=== PATIENT | male | born 1980 | race Two or more races ===

== ENCOUNTER 2022-06-29 08:43 | Emergency (ER) | payer MEDICAID, SELFPAY ==
[2022-06-29 09:28] VITALS: BP 136/79; PULSE 78; RESP 16; TEMP 36.4; O2SAT 98; BMI 29.3
[2022-06-29 10:07] LABS: COVID-19 Test Negative (Negative); IDNOW Serial# 9DB6401D
[2022-06-29 10:10] LABS: IDNOW Serial# BCCEAD1C; Influenza A Negative (Negative); Influenza B2 Negative (Negative)
--- NOTE | 2022-06-29 10:58 | ED_ITS ---
HPI - URI/Sore Throat General Chief Complaint: Upper Respiratory Symptoms Stated Complaint: Flu Like Symptoms Time Seen by Provider: 06/29/22 09:43 Source: patient and family (Daughter at bedside with similar symptoms) Mode of arrival: ambulatory Limitations: language barrier (Spanish [place]) History of Present Illness HPI Narrative: 41yoM c No Sig PMHx presenting to the ER with daughter at bedside they both speak [place] with complaints of subjective fevers, chills, fatigue, malaise, nasal congestion/rhinorrhea, body aches and an intermittent productive cough for the past 2-3 days. He denies any measured fevers, dizziness, headaches, neck pain/stiffness, trouble swallowing or breathing, sore throat, ear pain, chest pain or shortness of breath, dyspnea on exertion, orthopnea, palpitations, paresthesias, nausea/vomiting/diarrhea constipation, abdominal pain, flank pain, dysuria, hematuria, abnormal penile discharge, rashes or recent travel or any other sick contacts that he is aware of other than his daughter any other symptoms complaints or concerns at this time. MD elicited complaint: cough, rhinorrhea and nasal congestion Onset (ago): day(s) (2-3) Consistency: constant Severity: mild Description of mucous: clear, watery and yellow Able to tolerate fluids by mouth: Yes Exacerbating factors: nothing Relieving factors: nothing Context: sick contacts and other(s) with similar symptoms Associated symptoms: chills, myalgias, headache, rhinorrhea, nasal congestion and cough Treatments prior to arrival: none Related Data Previous Rx's Medication Instructions Recorded acetaminophen 500 mg tablet 1,000 mg PO QID PRN fever or pain 06/29/22 (Tylenol Extra Strength) #14 tabs ibuprofen 800 mg tablet 800 mg PO Q8H PRN pain #14 tabs 06/29/22 Allergies Allergy/AdvReac Type Severity Reaction Status Date / Time No Known Allergies Allergy Verified 06/29/22 09:27 Review of Systems Review of Systems: Constitutional : No Weight loss, No Fever, No Chills, No Night Sweats, + Fatigue, + Malaise ENT/Mouth : No Hearing loss, No Ear Pain, + Nasal Congestion, No Sinus Pain, No Hoarseness, No sore throat, + Rhinorrhea, No Swallowing Difficulty Eyes: No Eye Pain, No Swelling, No Redness, No Foreign Body, No Discharge, No Vision Changes Cardiovascular : No Chest Pain, No SOB, No Dyspnea on Exertion, No Orthopnea, No Edema, No Palpitations Respiratory : + Cough, No Sputum, No Wheezing, No Smoke Exposure, No Dyspnea Gastrointestinal : No Nausea, No Vomiting, No Diarrhea, No Constipation, No abdominal Pain, No Hematochezia, No Melena Genitourinary : no irregular bleeding, No Dysuria, No Urinary Frequency, No Hematuria, No Urinary Incontinence, No Urgency, No Flank Pain, No Urinary Flow Changes, No Hesitancy Musculoskeletal : No joint pain, + Myalgias, No Joint Swelling Skin : No Skin Lesions, No rash Neuro : No Weakness, No Numbness, No Paresthesias, No Loss of Consciousness, No Dizziness, No Headache Psych : No Anxiety/Panic, No Depression, No SI/HI/AH/VH, No Social Issues, Heme/Lymph: No Bruising, No Bleeding,No Lymphadenopathy Endocrine : No Polyuria, No Polydipsia, No Temperature Intolerance Yes all other systems are reviewed and are negative [facility] Past Medical History Attestation statement: The following information was validated with the patient. Source: old records reviewed, obtained from family and nursing notes reviewed Social History Social History Advance Directives: No Physical Exam Vital Signs: Vital Signs: Last Vital Signs Temp 97.5 F 06/29/22 09:28 Pulse 78 06/29/22 09:28 Resp 16 06/29/22 09:28 BP 136/79 06/29/22 09:28 Pulse Ox 98 06/29/22 09:28 O2 Del Method 06/29/22 09:28 BMI result Body Mass Index 29.3 vital signs have been reviewed as normal and appeared to be correct. Blood pressure normal. Heart rate normal. Respiration rate normal. Temperature normal. Oxygen saturation normal. Appearance: Alert. Oriented X3. No acute distress. Head: Normal external exam. Normocephalic. Atraumatic. Eyes: PERRLA. EOMI. Conjunctiva and sclera normal. Eyelids normal. ENT: EAC normal. TM's Normal. Pharynx normal. Uvula midline. Moist mucous membranes. No lesions/ulcerations or masses noted on the tongue. Normal voice. No trismus noted. No drooling noted. No muffled voice noted. Neck: Normal inspection. Neck supple. FROM. No adenopathy. Thyroid Normal. No crepitus is noted. No meningeal signs. No neck mass noted. CVS: Normal heart rate and rhythm. Heart sound normal. Pulses normal throughout. No murmurs/rales/gallops. Respiratory: No respiratory distress. Painless inspiration. Breath sounds normal. No wheezes/rales/rhonchi noted. Chest nontender. No accessory muscle usage noted or decreased air movement noted. Back: Full range of motion noted. Skin: Skin warm and dry. Normal skin color. Normal skin turgor. No rashes/lesions/lacerations noted. Extremities: Extremities exhibit normal range of motion and nontender. Neuro: Oriented X 3. No motor deficit. No sensory deficit. Reflexes normal. Normal steady gait. No focal neuro deficits noted. CN's II-XII intact bilaterally? Vascular: + radial pulses/+ 2 distal pedal pulses/+2 dorsalis pedis b/l. Normal cap refill. No cyanosis noted to upper extremity nails and lower extremity toes nails. Course Course Course Narrative: 14-year-old female with no significant past medical history who is up-to-date on all immunizations currently in school presenting to the ER with her father at bedside they both speak [place] with complaints of subjective fevers, chills, fatigue, malaise, nasal congestion/rhinorrhea, ear pain, sore throat, intermittent headaches and a productive cough with yellow/green thick sputum for the past 2 weeks. Reports that he does not have a thermometer at home therefore he was unable to take his daughter's temperature although last night she felt very warm. He reports he has been giving [id number] Motrin Tylenol which has been providing symptomatic relief. On exam patient appears well. Vital signs are stable. Neck is soft nontender and full range of motion normal meningeal sign noted. Lungs clear to auscultation. Patient negative for COVID. Patient negative for influenza. Although daughter just tested positive for influenza. I explained to the patient most likely has influenza and has a false negative. Will DC home with instructions to self isolate and to return if any new or worsening symptoms to follow up with primary care provider. Patient with daughter at bedside understand agree this plan. MDM - URI/Sore Throat Medical Records Attestation: I reviewed the patient's medical records. Lab Data Attestation: I reviewed the patient's lab results. Labs: Lab Results 06/29/22 06/29/22 Range/Units 09:31 09:31 COVID-19 (ANAIS) Negative (Negative) COVID-19 Clin Com See Note Influenza Type A (ERROL) Negative (Negative) Influenza Type B (ERROL) Negative (Negative) Influenza A & B Note See Note Discharge Plan Discharge Clinical Impression: Viral infection Patient Disposition: Home, Self-Care Instructions: Viral Syndrome (ED) Prescriptions: New ibuprofen 800 mg tablet 800 mg PO Q8H PRN (Reason: pain) Qty: 14 0RF acetaminophen [Tylenol Extra Strength] 500 mg tablet 1,000 mg PO QID PRN (Reason: fever or pain) Qty: 14 0RF Referrals: Physician,None [Primary Care Provider] - (your pcp as needed) Stand Alone Forms: Work/School Release Print Language: Telugu
== END 2022-06-29 11:30 | disposition home or self-care (01) ==
PROVIDERS: Emergency Provider Emergency Medicine
DX: R51.9 Headache, unspecified (principal); R05.9 Cough, unspecified; M79.10 Myalgia, unspecified site; Z20.822 Contact with and (suspected) exposure to COVID-19
CPT/HCPCS: 87502; 87635; 99283

== ENCOUNTER 2022-09-14 06:51 | Emergency (ER) | payer MEDICAID, SELFPAY ==
[2022-09-14 07:13] VITALS: BP 141/93; PULSE 87; RESP 16; TEMP 37.4; O2SAT 97; BMI 26.4
--- NOTE | 2022-09-14 07:27 | ED.GENADULT ---
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 Mode of arrival: ambulatory Limitations: no limitations History of Present Illness HPI narrative: vaccinated for COVID + test at home here for work note symptoms tuesday test positive tuesday complaint: work note, rash Onset (ago): day(s) (tuesday) Location: neck Radiation: non-radiation Severity: mild Quality: other (pruritic) Pain Consistency: intermittent Relieving factors: none Exacerbating factors: movement Associated symptoms: other (loss of taste and smell) Treatments prior to arrival: none Related Data Previous Rx's Medication Instructions Recorded acetaminophen 500 mg tablet 1,000 mg PO QID PRN fever or pain 06/29/22 (Tylenol Extra Strength) #14 tabs ibuprofen 800 mg tablet 800 mg PO Q8H PRN pain #14 tabs 06/29/22 hydrocortisone 1 % topical cream 1 appl topical TID PRN rash 10 09/14/22 days #28.35 grams Allergies Allergy/AdvReac Type Severity Reaction Status Date / Time No Known Allergies Allergy Verified 06/29/22 09:27 Review of Systems Review of Systems: Constitutional : No Fever, No Chills, loss of taste and smell ENT/Mouth : No sore throat, No Rhinorrhea Cardiovascular : No Chest Pain, No SOB Respiratory : No Cough, No Sputum Gastrointestinal : No Nausea, No Vomiting, No Diarrhea, No abdominal Pain Musculoskeletal : No joint pain, No Myalgias, No Joint Swelling Skin : No Skin Lesions, positive skin rash Neuro : No Weakness, No Numbness, No Headache Psych : No Anxiety, No Depression All other systems reviewed and are negative [facility] Past Medical History Attestation statement: The following information was validated with the patient. Medical History No pertinent past medical history Social History Social History (Updated 09/14/22 @ 07:28 by Lisa Fonseca DO) Patient Tobacco Use Status: Tobacco use Unknown Advance Directives: No Advance Directives Information Provided: No Physical Exam ED Vital Signs: Vital Signs - 24 hr 09/14/22 07:13 Temperature 99.3 F Pulse Rate 87 Respiratory Rate 16 Blood Pressure 141/93 H Pulse Oximetry 97 Oxygen Delivery Method Room Air BMI result Body Mass Index 26.4 Appearance: Alert. Oriented X3. No acute distress. Eyes: Pupils equal, round and reactive to light. ENT: Pharynx normal. Neck: Normal inspection. Neck supple. CVS: Normal heart rate and rhythm. Pulses normal. Respiratory: No respiratory distress. Breath sounds normal. Abdomen: Soft and nontender. Skin: Skin warm and dry. Normal skin color. around neck small red raised scaly patches no edema no drainage no warmth no signs of infection Extremities: No lower extremity edema. Neuro: Oriented X 3. No motor deficit. No sensory deficit. Medical Decision Making Medical Decision Making MDM Narrative: 42 yo male vaccinated here with c/o post COVID lack of taste and smell after testing positive tuesday with fevers - no fever since tuesday, has rash that is itchy on neck since he came for work note - can go back it is day 7 with mask for 3 days, can use topical hydrocortisone for dermatitis likely post COVID rash. Looks well stable VS Differential Diagnosis Differential Diagnoses: The differential diagnosis associated with the presentation includes post covid syndrome and rash External Record Review External record reviewed: Inpatient record Prescription Management I considered prescription management with: Other Discharge Plan Discharge Clinical Impression: Dermatitis, COVID-19 Patient Disposition: Home, Self-Care Instructions: Dermatitis (ED), COVID-19 (Coronavirus Disease 2019) (ED) Additional Instructions: retorno por agravamento dos sintomas, dificuldade em respirar, vermelhid?o/incha?o perto da erup??o cut?eileen, rhona no peito Prescriptions: New hydrocortisone 1 % cream 1 appl topical TID PRN (Reason: rash) 10 Days Qty: 28.35 0RF No Action ibuprofen 800 mg tablet 800 mg PO Q8H PRN (Reason: pain) Qty: 14 0RF acetaminophen [Tylenol Extra Strength] 500 mg tablet 1,000 mg PO QID PRN (Reason: fever or pain) Qty: 14 0RF Stand Alone Forms: Work/School Release
== END 2022-09-14 08:18 | disposition home or self-care (01) ==
PROVIDERS: Emergency Provider Emergency Medicine
DX: U07.1 COVID-19 (principal); R50.9 Fever, unspecified; L25.9 Unspecified contact dermatitis, unspecified cause
CPT/HCPCS: 99282; 99283

== ENCOUNTER 2023-12-09 10:18 | Emergency (ER) | payer MEDICAID, OTHER, SELFPAY ==
--- NOTE | ~2023-12-09 | XR_ITS ---
EXAMINATION: XR HAND, LEFT CLINICAL INFORMATION: Third phalanx injury, pain. COMPARISON: None available. TECHNIQUE: PA, lateral, and oblique views of the left hand. FINDINGS: No fracture or subluxation. Joint spaces are maintained. Carpal rows are aligned. No significant soft tissue abnormality. XR/XR hand LT 2V IMPRESSION: Normal radiographic examination of the left hand.
[2023-12-09 10:32] VITALS: BP 121/61; PULSE 74; RESP 16; TEMP 36.9; O2SAT 98; BMI 29.0
--- NOTE | 2023-12-09 11:31 | ED.EXTPRO ---
HPI - Extremity Problem General Chief complaint: Extremity Injury, Upper Stated complaint: broken finger ? 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 Reports that he injured it while using a buffing machine for floors today. Has pain pain With extension of the digit, point of most comfort is in partial flexion. Denies Numbness or tingling. Related Data Previous Rx's ?Medication ?Instructions ?Recorded acetaminophen 500 mg tablet 1,000 mg (2 x 500 mg) PO QID PRN 06/29/22 (Tylenol Extra Strength) fever or pain #14 tabs ibuprofen 800 mg tablet 800 mg PO Q8H PRN pain #14 tabs 06/29/22 hydrocortisone 1 % topical cream 1 appl topical TID PRN rash 10 09/14/22 days #28.35 grams Allergies Allergy/AdvReac Type Severity Reaction Status Date / Time No Known Allergies Allergy Verified 12/09/23 10:33 Review of Systems Review of Systems: Yes all other systems are reviewed and are negative [facility] Past Medical History Attestation statement: The following information was validated with the patient. Source: old records reviewed Medical History No pertinent past medical history Social History Social History (Updated 09/14/22 @ 07:28 by Lisa Fonseca DO) Patient Tobacco Use Status: Tobacco use Unknown Smoked in Last 30 Days: No Use of substances other than those prescribed or required for medical reasons: No Advance Directives: No Advance Directives Information Provided: Yes Physical Exam Vital Signs: Vital Signs: Last Vital Signs Temp 98.4 F 12/09/23 12:33 Pulse 74 12/09/23 12:33 Resp 18 12/09/23 12:33 BP 121/61 12/09/23 12:33 Pulse Ox 98 12/09/23 12:33 O2 Del Method Room Air 12/09/23 12:33 BMI result Body Mass Index 29.0 Appearance: Alert.?Oriented to person, place and time. No acute distress.?Normal affect. Neck: Normal inspection.? Neck supple.?? CVS: Heart sounds normal. Normal heart rate and rhythm.? Pulses normal.?? Respiratory: No respiratory distress.? Lung sounds clear to auscultation bilaterally?? Skin: Skin warm and dry.? Normal skin color.? Extremities: trigger finger to left middle phalanx Neuro: Moves all extremities spontaneously. Sensation intact bilaterally. Ambulates with normal steady gait. Medical Decision Making Medical Decision Making MDM Narrative: patient is a 43-year-old male who presents emergency department for evaluation of traumatic left 3rd phalanx pain, accidental in nature. Extremities neurovascularly intact distally. finger is held in flexion, Pain is made worse with attempt for full extension, popping into full extension. XR was obtained, there is no evidence of fracture or dislocation. examination at this time most consistent with stenosing flexor tenosynovitis/trigger finger, advised rest, ice, elevation, acetaminophen / ibuprofen, outpatient follow-up with primary care provider /Hand specialist. Given pain is exacerbated when held in full extension, and acute injury, would avoid splinting at this time, Discussed activity modification with patient.. Differential Diagnosis Differential Diagnoses: The differential diagnosis associated with the presentation includes ( See narrative above) Independent Interpretation I performed an independent interpretation of an: Plain X-Ray ( no acute fracture or dislocation) Radiology Impression Discussion of test interpretation with radiology: I have reviewed the radiologist's reading. Radiologist Impression: XR/XR hand LT 2V IMPRESSION: Normal radiographic examination of the left hand. Prescription Management I considered prescription management with: Pain Medication ( acetaminophen/ibuprofen) Discharge Plan Discharge Clinical Impression: Trigger finger of left thumb Patient Disposition: Home, Self-Care Instructions: Trigger Finger (ED) Additional Instructions: You can take ibuprofen 200 mg, 3 tablets (600mg) every 6-8 hours as needed for pain, in addition to Tylenol 500 mg, 2 tablets (1,000mg) every 4-6 hours as needed for pain, but not to exceed 3 doses daily (3,000mg).? Apply ice the area for 10-15 minutes 3-4 times daily. Elevate her hand above the level of your chest when possible. x-ray does not show evidence of fracture dislocation. Follow-up primary care provider/ hand specialist for evaluation if no improvement over the next week.. Prescriptions: No Action hydrocortisone 1 % cream 1 appl topical TID PRN (Reason: rash) 10 Days Qty: 28.35 0RF ibuprofen 800 mg tablet 800 mg PO Q8H PRN (Reason: pain) Qty: 14 0RF acetaminophen [Tylenol Extra Strength] 500 mg tablet 1,000 mg PO QID PRN (Reason: fever or pain) Qty: 14 0RF Referrals: ED Physician,Generic [Physician] - Precious Bateman MD [Physician] - Interventions: ED Discharge Assessment Last Done: 12/09/23 12:33 Discharge Date/Time: 12/09/23 12:35 Print Language: Turkmen
--- NOTE | 2023-12-09 12:24 | PC.NURSE ---
Eval by provider, negative xray, cleared for dc home.
[2023-12-09 12:33] VITALS: BP 121/61; PULSE 74; RESP 18; TEMP 36.9; O2SAT 98
== END 2023-12-09 12:35 | disposition home or self-care (01) ==
PROVIDERS: Emergency Provider Student in an Organized Health Care Education/Training Program
DX: M65.312 Trigger thumb, left thumb (principal); M79.642 Pain in left hand
CPT/HCPCS: 73120; 99283; 99284